=== PATIENT | female | born 1945 | race Caucasian/White ===

== ENCOUNTER → 2023-08-27 12:17 | Outpatient (REF) | payer MEDICARE, OTHER, SELFPAY | LOC: RAD 12:17 | PROVIDERS: ATTENDING PHYSICIAN Internal Medicine Critical Care Medicine; FAMILY PHYSICIAN Family Medicine | DX: R91.1 Solitary pulmonary nodule (principal) | CPT/HCPCS: 71250 ==

== ENCOUNTER 2023-09-07 06:47 | Day surgery (SDC) | payer MEDICARE, OTHER, SELFPAY ==
[2023-08-28 12:14] VITALS: BMI 31.0
[2023-09-07] VITALS (8 sets, daily range): BP systolic 116–173; BP diastolic 61–105; BMI 31.8; BMI 31.9
[2023-09-07] MEDS: LOPRESSOR 25 MG PO (13:35)
== END 2023-09-07 16:40 | disposition home or self-care (01) ==
LOC: SDS 06:47
PROVIDERS: ATTENDING PHYSICIAN Internal Medicine Critical Care Medicine
DX: R91.1 Solitary pulmonary nodule (principal); D14.31 Benign neoplasm of right bronchus and lung
CPT/HCPCS: 31629; 31624; 31623; 31627; 31654; 88173; 88305; 71045; 76000; 87015; 87070; 87102; 87116; 87205; 88112; 88333; 94640; C1887

== ENCOUNTER → 2023-09-28 14:08 | Outpatient (REF) | payer MEDICARE, OTHER, SELFPAY | LOC: WDC 14:08 | PROVIDERS: ATTENDING PHYSICIAN Family Medicine | DX: Z12.31 Encounter for screening mammogram for malignant neoplasm of breast (principal); Z78.0 Asymptomatic menopausal state | CPT/HCPCS: 77063; 77067; 77080 ==

== ENCOUNTER → 2024-01-13 09:56 | Outpatient (REF) | payer MEDICARE, OTHER, SELFPAY | LOC: RAD 09:56 | PROVIDERS: ATTENDING PHYSICIAN Internal Medicine Critical Care Medicine; FAMILY PHYSICIAN Family Medicine | DX: R91.1 Solitary pulmonary nodule (principal) | CPT/HCPCS: 71250; 74150 ==

== ENCOUNTER → 2024-02-03 11:07 | Outpatient (REF) | payer MEDICARE, OTHER, SELFPAY | LOC: RAD 11:07 | PROVIDERS: ATTENDING PHYSICIAN Family Medicine | DX: R20.0 Anesthesia of skin (principal) | CPT/HCPCS: 72110; 73502 ==

== ENCOUNTER → 2024-03-22 09:17 | Outpatient (REF) | payer MEDICARE, OTHER, SELFPAY | LOC: RCS 09:17 | PROVIDERS: ATTENDING PHYSICIAN Internal Medicine Cardiovascular Disease; FAMILY PHYSICIAN Family Medicine | DX: I34.0 Nonrheumatic mitral (valve) insufficiency (principal) | CPT/HCPCS: 93306 ==

== ENCOUNTER → 2024-04-10 10:48 | Outpatient (REF) | payer MEDICARE, OTHER, SELFPAY | LOC: MRI 3T 10:48 | PROVIDERS: ATTENDING PHYSICIAN Physician Assistant; FAMILY PHYSICIAN Family Medicine | DX: M54.16 Radiculopathy, lumbar region (principal) | CPT/HCPCS: 72148 ==

== ENCOUNTER → 2024-07-25 13:28 | Outpatient (REF) | payer MEDICARE, OTHER, SELFPAY | LOC: HWRAD 13:28 | PROVIDERS: ATTENDING PHYSICIAN Internal Medicine Critical Care Medicine; FAMILY PHYSICIAN Family Medicine | DX: R91.1 Solitary pulmonary nodule (principal) | CPT/HCPCS: 71250 ==

== ENCOUNTER → 2024-10-21 10:03 | Outpatient (REF) | payer MEDICARE, OTHER, SELFPAY | LOC: RCS 10:03 | PROVIDERS: ATTENDING PHYSICIAN Internal Medicine Cardiovascular Disease; FAMILY PHYSICIAN Family Medicine | DX: I34.0 Nonrheumatic mitral (valve) insufficiency (principal) | CPT/HCPCS: 93306 ==

== ENCOUNTER → 2024-10-26 09:28 | Outpatient (REF) | payer MEDICARE, OTHER, SELFPAY | LOC: WDC 09:28 | PROVIDERS: ATTENDING PHYSICIAN Family Medicine | DX: Z12.31 Encounter for screening mammogram for malignant neoplasm of breast (principal) | CPT/HCPCS: 77063; 77067 ==